=== PATIENT | female | born 1985 | race Caucasian/White ===

== ENCOUNTER 2025-04-16 09:34 | Emergency (ER) | payer BC, SELFPAY ==
--- NOTE | ~2025-04-16 | US_ITS ---
EXAMINATION: US pelvic complete INDICATION: Right lower quadrant pain for one week. Comparison:No prior studies for comparison. TECHNIQUE: Multiple transabdominal sonographic images of the pelvis performed. Patient refused transv aginal examination. FINDINGS: The uterus measures 9.5 x 4.1 x 6 cm. The endometrial complex measures 12 mm. The right ovary measures 2.4 x 2.7 x 2.2 cm and the left ovary measures 2.7 x 2.1 x 1.5 cm. There ar e small follicles in each ovary. Normal doppler signal in both ovaries. There is no free fluid in the pelvis. There are no abnormal masses seen on either side. IMPRESSION: 1. Mild endometrial thickening measuring 12 mm. Reviewed, dictated and finalized at location B.
--- NOTE | ~2025-04-16 | CT_ITS ---
EXAMINATION: CT abdomen pelvis w con DATE: 04/16/2025 10:19 INDICATION: Right lower quadrant pain TECHNIQUE: Computed tomography (CT) of the abdomen and pelvis was performed with 100 cc Omnipaque 350 intravenous contrast. The dose-length product was 561.68 mGy-cm. Automated exposure control and iter ative reconstruction technique were employed. COMPARISON: None. FINDINGS: There is dependent atelectasis. Heart size normal. No significant pleural or pericardial ef fusion. The liver, spleen, pancreas, adrenal glands and kidneys are unremarkable. Nonobstructive palak l gas pattern. Trace free fluid in the pelvis, physiologic. No hydronephrosis. Gallbladder is present . No free air. No significant vascular abnormality. No lymphadenopathy. No significant bone or joint abnormality. IMPRESSION: 1. No acute abdominal abnormality. Reviewed, dictated and finalized at location B.
[2025-04-16 09:37] VITALS: BP 159/94; PULSE 90; RESP 18; TEMP 36.6; O2SAT 100
[2025-04-16 09:39] VITALS: BP 159/94; PULSE 70; RESP 14; O2SAT 100
[2025-04-16 09:46] LABS: Basophils Percent Auto 0.6 % (0.2-1.2); Eosinophils Absolute Auto 0.2 K/mm3 (0-0.3); Eosinophils Percent Auto 2.4 % (0-4.4); Hematocrit 43.4 % (37.0-47.0); Hemoglobin 14.2 g/dL (12.0-15.0); Immature Granulocyte Absolute 0.03 K/mm3 (0.00-0.031); Immature Granulocyte Percent A 0.4 % (0-0.5); Lymphocytes Absolute Auto 2.21 K/mm3 (0.9-3.2); Lymphocytes Percent Auto 32.6 % (18.3-44.2); Mean Corpuscular HGB Conc 32.7 g/dl (32-36); Mean Corpuscular Hemoglobin 31.2 pg (26-34); Mean Corpuscular Volume 95.4 fl (80-100); Mean Platelet Volume 9.4 fl (7.4-10.4); Monocytes Absolute Auto 0.5 K/mm3 (0.1-0.6); Monocytes Percent Auto 6.6 % (2.6-8.5); Neutrophils Absolute Auto 3.9 K/mm3 (1.3-6.7); Neutrophils Percent Auto 57.4 % (45.5-73.1); Platelet Count Result 259 k/mm3 (150-375); Red Blood Count 4.55 M/mm3 (4.2-5.4); White Blood Count 6.8 K/mm3 (4.5-10.0)
[2025-04-16 09:51] LABS: BEDSIDEPREGUCG Negative (Negative)
--- NOTE | 2025-04-16 09:53 | ED_ITS ---
HPI - Abdominal Pain General Chief Complaint: Abdominal Pain Stated Complaint: abd pain Time Seen by Provider: 04/16/25 09:35 Source: patient Mode of arrival: ambulatory Limitations: no limitations History of Present Illness HPI narrative: Patient is a 39 y/o female who presents to the ED with c/o RLQ abd pain. Reports pain has been ongoing for the past 1 week. Worse with movement. She thought she may have strained a muscle. Denies alleviating factors. Has not tried anything for pain. States pain became worse and more sharp in nature today, which prompted her presentation. Denies history of similar pain. Does have history of ovarian cysts 10 years ago which she states was much more severe of pain. Denies N/V/D, fevers, urinary complaints, constipation. Related Data Allergies Allergy/AdvReac Type Severity Reaction Status Date / Time No Known Allergies Allergy Unknown Verified 04/16/25 09:39 Review of Systems 2 Review of Systems: All systems reviewed & are unremarkable except as noted in HPI. All systems reviewed & are unremarkable except as noted in HPI and below PMFSH Family History Family History Mother Asthma Family history of arthritis Family history of lung cancer Father Patient's father is in good health Sibling Patient's brother is Family history of allergic disorder Exam 2 Narrative: GENERAL: Well appearing, obese with BMI of 33.5, non-toxic, in no acute distress. HEAD: Normocephalic, atraumatic. RESPIRATORY: Airway patent, respirations nonlabored. Clear to auscultation bilaterally, no rales, rhonchi, wheezing. CARDIOVASCULAR: Regular rate and rhythm without murmurs, rubs, or gallops. ABDOMINAL: Soft, mild tenderness in right lower quadrant, right pelvic region, nondistended. Normoactive BS. MUSCULOSKELETAL: Moves all extremities. No gross deformities. SKIN: Warm, dry, normal color. NEURO: A&O X3. Speech clear. No ataxic movements. PSYCHIATRIC: Appropriate mood and affect. Normal interaction. Course Vital Signs Vital signs: Vital Signs Temperature 97.8 F 04/16/25 09:37 Pulse Rate 90 04/16/25 09:37 Respiratory Rate 18 04/16/25 09:37 Blood Pressure 159/94 H 04/16/25 09:37 Pulse Oximetry 100 04/16/25 09:37 Oxygen Delivery Room Air 04/16/25 09:37 Temperature 97.8 F 04/16/25 09:37 Pulse Rate 86 04/16/25 11:30 Respiratory Rate 16 04/16/25 11:30 Blood Pressure 118/80 04/16/25 11:30 Pulse Oximetry 98 04/16/25 11:30 Oxygen Delivery Room Air 04/16/25 09:37 MDM - Abdominal Pain MDM Narrative Medical decision making narrative: Patient presented to ED with 1 week history of right lower quadrant abdominal pain. No other associated symptoms. Vital signs are stable upon arrival. Patient is in no acute distress. Cbc without leukocytosis or anemia. CMP is unremarkable. UA with 6-10 WBC, but few squamous cells, no urine bacteria seen. Sent for culture. Patient denies any urinary complaints. Will defer to culture results. Urine is negative. CT scan of abdomen/pelvis was obtained and unremarkable. No evidence of appendicitis. Pelvic ultrasound was obtained and also without concerning findings. No evidence of ovarian cyst or torsion. Normal vascular blood flow to both ovaries. Does show mild endometrial thickening. Patient is due to start her menstrual cycle next week. Discussed lab and imaging findings, overall reassuring workup with patient. Feel she is safe for discharge home. Advised to utilize Tylenol/ibuprofen as needed for pain. Given return precautions. She is in agreement with plan. Discharged in stable condition. Medical Records Attestation: I reviewed the patient's medical records. Lab Data Attestation: I reviewed the patient's lab results. 04/16/25 09:40 04/16/25 09:40 Labs: Lab Results 04/16/25 04/16/25 04/16/25 Range/Units 09:40 09:49 09:50 WBC 6.8 (4.5-10.0) K/mm3 RBC 4.55 (4.2-5.4) M/mm3 Hgb 14.2 (12.0-15.0) g/dL Hct 43.4 (37.0-47.0) % MCV 95.4 (80-100) fl MCH 31.2 (26-34) pg MCHC 32.7 (32-36) g/dl RDW 12.0 (11.5-14.5) % Plt Count 259 (150-375) k/mm3 MPV 9.4 (7.4-10.4) fl Immature Gran % (Auto) 0.4 (0-0.5) % Neut % (Auto) 57.4 (45.5-73.1) % Lymph % (Auto) 32.6 (18.3-44.2) % Freestone % (Auto) 6.6 (2.6-8.5) % Eos % (Auto) 2.4 (0-4.4) % Baso % (Auto) 0.6 (0.2-1.2) % Lymph # (Auto) 2.21 (0.9-3.2) K/mm3 Freestone # (Auto) 0.5 (0.1-0.6) K/mm3 Eos # (Auto) 0.2 (0-0.3) K/mm3 Baso # (Auto) 0.0 (0.0-0.1) K/mm3 Abs Immat Gran (auto) 0.03 (0.00-0.031) K/mm3 Absolute Neuts (auto) 3.9 (1.3-6.7) K/mm3 Absolute Nucleated RBC 0.000 (0.0-0.012) K/mm3 Nucleated RBC % 0.0 (0.0-0.2) % Sodium 136 L (137-145) mmol/L Potassium 3.9 (3.4-5.0) mmol/L Chloride 102 (98-107) mmol/L Carbon Dioxide 24 (22-30) mmol/L Anion Gap 10 (4-12) mmol/L BUN 12 (7-17) mg/dL Creatinine 0.63 L (0.7-1.0) mg/dL Estim Creat Clear Calc 96 ml/min Estimated GFR > 60 (59 - ) Glucose 103 (65-110) mg/dL Calcium 9.9 (8.4-10.2) mg/dL Total Bilirubin 0.7 (0.2-1.3) mg/dL AST 28 (14-36) U/L ALT 22 (6-35) U/L Alkaline Phosphatase 56 (38-126) U/L Total Protein 8.4 H (6.3-8.2) g/dL Albumin 5.1 (3.5-5.1) g/dL Lipase 46 (23-300) U/L Urine Color Yellow (Yellow) Urine Appearance Clear (Clear) Urine pH 7.0 (5.0-9.0) Ur Specific Moyers 1.003 (1.001-1.035) Urine Protein Negative (Negative) mg/dL Urine Glucose (UA) Negative (Negative) mg/dL Urine Ketones Negative (Negative) mg/dL Ur Blood (Man) Negative (Negative) Urine Nitrate Negative (Negative) Urine Bilirubin Negative (Negative) Urine Urobilinogen 0.2 (<2.0) mg/dL Leukocyte Esterase Rfl 1+ H (Negative) DAXA/UL Urine RBC 0-2 (0-2) /hpf Urine WBC 6-10 H (0-3) /hpf Ur Squamous Epith Cells Few (Few) /hpf Urine Bacteria None seen /hpf Urine Casts 0-2 POC Urine HCG, Qual Negative (Negative) Imaging Data Attestation: I personally reviewed and interpreted this imaging study as follows: Radiologist's impression: ITS Impressions Pelvis Ultrasound 04/16/25 11:08 IMPRESSION: 1. Mild endometrial thickening measuring 12 mm. Abdomen/Pelvis CT 04/16/25 11:09 IMPRESSION: 1. No acute abdominal abnormality. Discharge Plan Discharge Clinical Impression: Right lower quadrant abdominal pain Patient Disposition: Home Condition: Stable Instructions: Antibiotic Form, Abdominal Pain (ED) Additional Instructions: Your workup here was reassuring. Recommend Tylenol and ibuprofen as needed for pain. Follow-up with your primary care doctor for further evaluation if needed. Return to the ED if you experience worsening or severe pain, unable to keep down food or drink, persistent fevers, or any other symptoms of concern. Patient Language: Grenadian Follow-up/Referrals: Lynne,DO Annmarie [Primary Care Provider] - Time of Disposition: 11:20
[2025-04-16 09:57] LABS: Alanine Aminotransferase 22 U/L (6-35); Albumin Level 5.1 g/dL (3.5-5.1); Alkaline Phosphatase 56 U/L (38-126); Anion Gap 10 mmol/L (4-12); Aspartate Amino Transferase 28 U/L (14-36); Bilirubin,Total 0.7 mg/dL (0.2-1.3); Blood Urea Nitrogen 12 mg/dL (7-17); Calcium 9.9 mg/dL (8.4-10.2); Carbon Dioxide 24 mmol/L (22-30); Chloride 102 mmol/L (98-107); Estimated CRCL calculation 96 ml/min; Estimated Glomerular Filt Rate > 60; Glucose 103 mg/dL (65-110); Lipase 46 U/L (23-300); Potassium 3.9 mmol/L (3.4-5.0); Sodium 136 mmol/L (137-145); Total Protein 8.4 g/dL (6.3-8.2)
[2025-04-16 09:59] LABS: Add Urine Microscopic? YES; Appearance Urine Clear (Clear); Bacteria Urine None Seen /hpf; Bilirubin Urine Negative (Negative); Blood Urine Negative (Negative); Color Urine Yellow (Yellow); Glucose Urine UA Negative (Negative); Ketones Urine Negative (Negative); Leukocyte Esterase Ur 1+ LEU/UL (Negative); Nitrate Urine Negative (Negative); Non Pathogenic Casts 0-2; Protein Urine Negative (Negative); RBC Urine 0-2 /hpf (0-2); Specific Grav Ur 1.003 (1.001-1.035); Squamous Epithelial Cell Urine Few /hpf (Few); Urobilinogen Urine 0.2 mg/dL (<2.0)
--- OUTSIDE RECORDS SUMMARY | 2025-04-16 10:13 | XMS_ITS | Data Portability ---
Author Organization [employer], [facility] Address [address] [place] [address] Assessment No assessment recorded. Plan of Treatment Reminders Order Date Submit Date Provider Last Modified By Organization Details Last Modified Time Details Appointments None record ed. Lab None record ed. Referral None record ed. Procedures None record ed. Surgeries None record ed. Imaging None record ed. Medication Orders None record ed. Patient TargetsNo targets recorded. Patient Instructions Encounter Date Encounter Id Patient Instructions Last Modified By Organization Details Last Modified Time 09/11/2022 [id number] Patient Health Questionnaire-9* [email or web address] Not available 10/06/2022 12:59:56 learning about dietary guidelines tcarrell Not available 09/11/2022 10:48:35 eating healthy foods: care instructions tcarrell Not available 09/11/2022 10:48:35 abuse/domestic violence education tcarrell Not available 09/11/2022 10:48:35 weight managemen t education tcarrell Not available 09/11/2022 10:48:35 learning about control tcarrell Not available 09/11/2022 10:48:35 Reason for Referral None Reported. Procedures Surgical History Date Name Laterality Status Provider Name and Address Organization Details Recorded Time Date of Last Pap Smear completed [facility] 09/11/2022 10:36:47 delivery completed [facility] [employer] 09/11/2022 10:38:43 Imaging Results None recorded. Procedure Notes None recorded. Medical Equipment None Reported. Allergies No known drug allergies Medications Name Sig Start Date Stop Date Status Note LastModified by Organization Details LastModified Time multivitamin active Not Available Not Available Not Available Vitals Date Recorded Body height Body mass index (BMI) Body weight Systolic blood pressure Diastolic blood pressure Provider Name and Address Organization Details Last Updated DateTime 09/11/2022 152.4 cm 31.2 kg/m2 98849.78 g 102 mm[Hg] 64 mm[Hg] Eunice Cristobal [facility] 10:34:36 Social History Question Answer Notes LastModified by [employer] Details LastModified Time Tobacco Smoking Status Current Some Day Smoker Eunice Cristobal null, [facility] 09/11/2022 10:11:37 What Type Of Diet Are You Following? REGULAR Information not available 09/11/2022 How Many Children Do You Have? 1 Information not available 09/11/2022 What Is Your Relationship Status? Single Information not available 09/11/2022 Are You Sexually Active? Yes Information not available 09/11/2022 How Much Tobacco Do You Smoke? 0.5 PPD Information not available 09/11/2022 Sex: Unknown Functional Status Question Answer Note LastModified by [employer] Details LastModified Time Do you use any illicit or recreational drugs? No Information not available 09/11/2022 What is your level of alcohol consumption? Moderate Information not available 09/11/2022 Do you or have you ever used e-cigarettes or vape? Never used electronic cigarettes Information not available 09/11/2022 What is your exercise level? Occasional Information not available 09/11/2022 Mental Status None recorded. Family History Relationship Description Onset Age of this Age Resolved Age Notes LastModified by Organization Details LastModified Time Paternal Grandfather Heart disease ricenogle Not available 2021 10:11:37 Maternal Grandmother Malignant tumor of cervix ricenogle Not available 2021 10:11:37 Mother Malignant neoplasm of lung ricenogle Not available 2021 10:11:37 Father Heart disease ricenogle Not available 2021 10:11:37 Father Hypertensive disorder ricenogle Not available 2021 10:11:37 Medical History Condition Response Other Cancer N High Blood Pressure N Colon Cancer N Cytomegalovirus N Hyperthyroidism N MRSA N Blood Transfusion N Herpes (HSV) N Breast Cancer N Lung Cancer N Depression N Hypothyroidism N Incontinence N Panic Attacks N Neurological Disorder N Deep Vein Thrombosis N Anxiety Disorder N Autoimmune disease N Arthritis N Shingles N Tuberculosis/Positive PPD N Polycystic Ovarian Syndrome N Cervical Cancer N Chlamydia N Hematuria N Stroke N Varicosities N Seasonal allergies N Crohn's Disease N Alzheimer's/Dementia N COPD/Emphysema N Endometriosis N HPV/Genital Warts N IBS (Irritable Bowel Syndrome) N History of Abnormal Pap N High Cholesterol N Liver Disease N Fibromyalgia N Kidney Infection N Ulcer N Kidney Disease N HIV N Gallbladder disease N Sickle Cell Disease/Trait N Von Willebrand disease N ADD/ADHD N Eating Disorder N Diabetes Mellitus (non-insulin dependent ) N Anemia N Ovarian Problems N Multiple Sclerosis N Gonorrhea N Frequent Urinary Tract infections N Osteopenia N Headaches/migraines N GERD (reflux) N Ovarian Cancer N Diabetes (insulin dependent) N Seizures/Epilepsy N Fibroids N Asthma Y Heart Attack N Lupus N Endometrial Cancer N Rubella N Blood Clotting Disorder N Bipolar Disorder N Diabetes Mellitus (during ) N Ulcerative Colitis N Hepatitis N Heart Disease N Pulmonary Embolism N RPR N Chicken Pox N Osteoporosis N Gynecological History Statement/Question Response Flow Moderate Date of LMP 08/18/2022 Frequency of Cycle (Q days) 28 Date of Last Pap Smear 05/18/2020 Duration of Flow (days) 7 Current Control Method Condoms Age at Menarche 13 Obstetrics History GPAL:G 2 P 1 0 1 1 Type Value Full Term 1 Induced 1 Living 1 Total 2 Past Encounters Encounter ID Performer Location Encounter Start Date Encounter Closed Date Diagnosis/Indication Diagnosis SNOMED-CT Code Diagnosis ICD10 Code Diagnosis Note [id number] GREG VELIZ ZULEMA DUNN [facility] [address] [place] [address] 09/11/2022 09:44:14 09/11/2022 11:28:41 Gynecologic examination 78283767 Z01.419 37 y.o. here for annual exam.- Pap / HPV cotesting // up to date from 2019, discussed natural course of HPV infection, ASCCP guidelines . Plan to repeat cotesting in 1 year- Contracept antwan counseling : Wishes to continue condom use- Routine labs done with PCP- Mammo at age 40, no increased risk- Depression screen NEG- BMI counseling , diet and exercise reviewed- RTO for annual or PRN Contracept ion care education 275755885 Z30.09 Depression screening 171 822700 Z13.31 Health Concerns Section Related Observation LastModified by Organization Detai ls LastModified Time None Recorded Concern Status LastModified by Organization Details LastModified Time None Recorded Advance Directives Directive None Recorded Payers Insurance Date Sequence Insurance Name Policy Number Policy Bowie Covered Member ID Bowie Member ID Guarantor Name 03/29/2022 1 [employer] - LIVE 360 (EPO) [id number] Payton Jean Baptiste [id number] Payton Jean Baptiste Notes Date Note Type Note Provider Name and Address Organization Details Recorded Time 09/11/2022 text/html Annual GYNReport ed bypatient.Menstrua l cycle:Normal menses Urinary symptoms:No hematuria; No incontinence Vulva:No genital lesion Vagina:Normal vaginal discharge Breast:No breast pain; No breast lump; No nipple discharge Sexual complaints:No sexual complaints; No pain during intercourse; Normal libido Menopausal Symptoms:No menopausal symptoms; Normal vaginal lubrication Psychological symptoms:No depression; No anxiety; No PMDD Preventive measures:Encourage self breast examination; Encourage regular exercise; Encourage no tobacco use; Encourage regular mammograms starting age 40; Followed with Q3 year pap smear and high risk HPV typing GREG DUNN CNM [address] [place], [address], [facility] 09/11/2022 11:00:23 OBGyn Episode Ob Episode Information Episode Created Date Number of Fetuses Patient Bloodtype Patient rh Status Prepregnancy Weight lbs Domestic Partner Domestic Partner Phone Father Name Range Technician Status 09/11/20 22 1 CLOSED Fetus Data First Name Last Name Admitted to NICU Weight (g) Sex Living Outcome Pediatric Complications Fetus ID Race Codes Race Delivery Type 3401.94 M Full Term [id number] Primary Scott Calculation Initial Scott Date Initial Exam Date Initial Exam Provider Initial Ultrasound Date Last Menstrual Period Date Ultra Sound Weeks Gestation 0 Eighteen To Twenty Week Scott Update Ultra Sound Date Fundal Height At Umbil Quickening Date Ultra Sound Latest Weeks Gestation Final Scott Confirmed By Final Scott Confirmed Date Final Scott Date Ultra Sound Latest Days Gestation 0 0 Menstrual History Last Menstrual Date Menses Monthly On Bcp Conception Prior Menses Frequency Hcg Plus Date Menarche Onset Age Delivery Information Delivery Date Delivery Type Labor Anesthesia Weeks Gestation Incision Type Labor Labor Length Hrs Delivered By Post Complications Tubal Sterilization Discharge Date Comments 9 Discharge Information Feeding Method Contraceptive Method Maternal HG B and HCT Levels
--- OUTSIDE RECORDS SUMMARY | 2025-04-16 10:14 | XMS_ITS | Data Portability ---
Author Organization [facility] Address [address] [place] [address] Assessment Encounter Date Assessment Date Assessment LastModified by Organization Details LastModified Time 08/06/2019 08/06/2019 Pt presents with acute complaints r/t soreness of throat: tmond Not available 08/07/2019 12:08:42 Plan of Treatment Reminders Order Date Submit Date Provider Last Modified By Organization Details Last Modified Time Details Appointments None recorded. Lab rapid strep group A, throat 2018 tmond In-Office Order, Internal Use Only DO Not Attach Compendium DO Not Attach Compendium, Do Not Delete/merge, [id number] 12:43:00 Referral None recorded. Procedures None recorded. Surgeries None recorded. Imaging None recorded. Medication Orders amoxicilli n 500 mg capsule 2018 [facility] [id number] [facility], [facility] [address] [place], [address], 9 15:13:41 Patient TargetsNo targets recorded. Patient Instructions Encounter Date Encounter Id Patient Instructions Last Modified By Organization Details Last Modified Time 08/06/2019 [id number] -Pt advised to drink plenty of fluids, get plenty of rest, discard toothbrush after treatment may use salt water gargles and to complete antibiotic regimen. -Instructed to call office if symptoms are unchanged or worsen in the next few days. -Instructed to present to the ED or urgent care with urgent concerns or urgent changes in condition. tmond Not available 08/07/2019 12:12:01 -Discussed POC -Pt to follow up with routine f/u visit as discussed tmond Not available 08/07/2019 12:12:07 Reason for Referral None Reported. Results Created Date Observation Date Name Description Value Unit Range Abnormal Flag Note LastModifiedBy Organization Detail LastModifiedTime 08/06/20 19 08/06/2019 rapid strep group A, throa t Strep negati ve Not Available In-Office Order Internal Use Only DO Not Attach Compendium DO Not Attach Compendium, Do Not Delete/merge, [id number] 08/06/2019 15:01:42 Result Notes None recorded. Medical Equipment None Reported. Allergies No known drug allergies Medications Name Sig Start Date Stop Date Status Note LastModified by Organization Details LastModified Time amoxicillin 500 mg capsule Take 1 capsule every 12 hours by oral route for 10 days. active Not Available Not Available No t Available hydrocodone 5 mg-acetaminop hen 325 mg tablet active Not Available Not Available Not Available ibuprofen 600 mg tablet active Not Available Not Available No t Available cefdinir 300 mg capsule active Not Available Not Available N ot Available Vitals Date Recorded Body height Body mass index (BMI) Body weight Body temperature Oxygen saturation Oxygen saturation in Arterial blood by Pulse oximetry Heart rate Systolic blood pressure Diastolic blood pressure Provider Name and Address Organization Details Last Updated DateTime 9 165.1 cm 28.3 kg/m2 37130.7 g 98.9 [degF] 99 % 99 % 76 /min 112 mm[Hg] 72 mm[Hg] Heather Dennis MA [place] [facility] 9 14:54:36 Social History Question Answer Notes LastModified by [employer] Details LastModified Time Tobacco Smoking Status Current Every Day Smoker Heather Dennis MA [facility], [facility] 08/06/2019 14:52:13 What Was The Date Of Your Most Recent Tobacco Screening? 08/06/2019 Information n ot available 08/07/2019 How Much Tobacco Do You Smoke? 0.5 PPD Information not available 08/06/2019 Sex: Unknown Functional Status Question Answer Note LastModified by [employer] Details LastModified Time Do you or have you ever used smokeless tobacco? Never used smokeless tobacco Information not available 08/06/2019 Do you or have you ever used e-cigarettes or vape? Never used electronic cigarettes Information not available 08/06/2019 Mental Status None recorded. Family History Nothing Reported. Medical History No medical history recorded. Gynecological HistoryNo gynecological history recorded. Obstetrics History GPAL:G 0 P 0 0 0 0 Past Encounters Encounter ID Performer Location Encounter Start Date Encounter Closed Date Diagnosis/Indication Diagnosis SNOMED-CT Code Diagnosis ICD10 Code Diagnosis Note [id number] HUI MENDOZA [facility] [address] [place] [address] 08/06/2019 14:28:16 08/07/2019 13:37:45 Pain in throat 638644225 R07.0 -Pt reports sore throat for approx 24 hrs-PE yields mild exudate on right tonsil. erythema Exposure t o streptococcal pharyngitis 5751985594 105 Z20.818 -Pt with recent exposure to Strept throat-Man agement as outlined Health Concerns Section Related Observation LastModified by Organization Detai ls LastModified Time None Recorded Concern Status LastModified by Organization Details LastModified Time None Recorded Advance Directives Directive None Recorded Payers Insurance Date Sequence Insurance Name Policy Number Policy Bowie Covered Member ID Bowie Member ID Guarantor Name 08/06/2019 1 [employer] (POS) [id number] Payton Jean Baptiste [id number] Payton Jean Baptiste Notes Date Note Type Note Provider Name and Address Organization Details Recorded Time 08/06/2019 text/html Throat PainReported bypatient.Location :level of pain ; bilateral Severity:mild; pain level 3/10 Onset/Timing:gradu al; stable Associated Symptoms:no stress; no coughing with sputum; no choking; no throat tickle/itch; no globus sensation; no odynophagia; no dysphagia; no burping; no hoarseness; no neck/shoulder muscle tension; no weight loss; no loss of appetite; no fever; no lump in neck; no dyspnea; no daytime somnolence; no ear pain; no ear infection; no nasal congestion; no postnasal drip; no oral mucosal lesion; no hemoptysis HUI MENDOZA Attn: [address]ing[address] [place], [address], [place] - [facility] 08/07/2019 12:12:51 OBGyn Episode No OBEpisode recorded.
--- OUTSIDE RECORDS SUMMARY | 2025-04-16 10:14 | XMS_ITS | Clinical Summary ---
Author Organization Davey Pao [facility] Address [address] [place] [address] Phone Care Team Providers Care Cook Manager Name Role Phone Unavailable Primary Care Provider Unavailabl e Allergies Active Allergy Reactions Criticality Noted Date Comments Adhesive Tape-Silicones Unknown 05/06/2021 Cyclobenzaprine Unknown 05/06/2021 Medications No known medications Active Problems Problem Noted Date Diagnosed Date Family history of lung cancer 05/16/2021 Family history of uterine cancer 05/16/2021 Family history of ovarian cancer 05/16/2021 Family history of cervical cancer 05/16/2021 Family history of esophageal cancer 05/16/2021 Genetic testing 05/16/2021 Family History Medical History Relation Name Comments Other Father Suicide Cancer Maternal Aunt 1 Cervical can cer Cancer Maternal Cousin 1 Ovarian Cancer Maternal Cousin 1 Cervical cancer Cancer Maternal Cousin 2 Thyroid ca ncer Cancer Maternal Grandmother Uterine cancer Ovarian Cancer Maternal Grandmother Cancer Maternal Uncle Esophageal ca ncer Lung Cancer Mother Smoker Cancer Paternal Cousin Childhood ca ncer Relation Name Status Comments Brother 1 Alive Brother 2 Father Maternal Aunt 1 Alive Maternal Aunt 2 Alive Maternal Cousin 1 Alive Maternal Cousin 2 Alive Maternal Grandfather Maternal Grandmother endomet rial Maternal Uncle Mother cervical and th yroid/lung Paternal Aunt 1 Alive Paternal Aunt 2 Alive Paternal Aunt 3 Alive Paternal Aunt 4 Alive Paternal Cousin Alive Paternal Grandfather Paternal Grandmother Paternal Uncle 1 Alive Paternal Uncle 2 Alive Paternal Uncle 3 Alive Paternal Uncle 4 Alive Sister Alive Son Alive Social History Tobacco Use Types Packs/Day Years Used Date Smoking Tobacco: Never Assessed Comments Unknown Sex and Gender Information Value Date Recorded Sex Assigned at Not on file 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
--- OUTSIDE RECORDS SUMMARY | 2025-04-16 10:14 | XMS_ITS | Clinical Summary ---
Author Organization [facility] Address [address] [place] [address] Care Team Providers Care Screen Cleaner Name Role Phone María Deleon MD Primary Care Provider Maxine vailable Source Comments [facility],non-owned Affiliates and Associated Physician Practices is amultiple site organization consisting of ambulatory clinics and hospital sitesin [place], [place], [place] and [place]. This disclosure is being madepursuant to the Care Everywhere program and may not contain all information available regarding this patient. Last updated 18.[facility] Allergies No known active allergies Medications * Be aware that medications may not be up to date on this document. Alwaysverify current medications with the patient. albuterol HFA (VENTOLIN HFA) 108 (90 BASE) MCG/ACT inhaler Inhale 2 puffs by mouth every 6 hours as needed for Wheezing 1 Inhaler 1 12/26/2017 Active Active Problems No known active problems Immunizations Immunization Administration Dates Next Due TDAP (7yrs+) 10/23/2018 Family History Medical History Relation Name Comments Other - Cardiac Father Cancer - Other Mother Asthma Neg Hx Autoimmune Disease Neg Hx Bipolar Disorder Neg Hx Cancer - Breast Neg Hx Cancer - Colon Neg Hx Cancer - Ovarian Neg Hx Cancer - Pancreatic Neg Hx Cancer - Prostate Neg Hx Depression Neg Hx Eczema Neg Hx Hypertension Neg Hx Migraine Neg Hx Osteoporosis Neg Hx Seizures Neg Hx Sudd. <30 Neg Hx Thyroid Disease Neg Hx Ulcerative Colitis Neg Hx Relation Name Status Comments Father Alive Mother Social History Tobacco Use Types Packs/Day Years Used Date Smoking Tobacco: Every Day Smokeless Tobacco: Never Tobacco Cessation:Ready to Q uit: No; Counseling Given: No Alcohol Use Standard Drinks/Week Comments No 0 (1 standard drink = 0.6 oz pur e alcohol) Comments No Sex and Gender Information Value Date Recorded Sex Assigned at Female 11/11/2024 12:40 PM DIRECTOR MUSIC Legal Sex Female 9:07 AM DIRECTOR MUSIC Gender Identity Female 11/11/2024 12:40 PM DIRECTOR MUSIC Sexual Orientation Straight 11/11/2024 12 :40 PM DIRECTOR MUSIC Last Filed Vital Signs Vital Sign Reading Time Taken Comments Blood Pressure 120/77 12/26/2017 12:14 PM DIRECTOR MUSIC Pulse 98 12/26/2017 12:14 PM DIRECTOR MUSIC Temperature 36.7 C (98.1 F) 12/26/2017 12:14 PM DIRECTOR MUSIC Respiratory Rate 20 12/26/2017 12:14 PM DIRECTOR MUSIC Oxygen Saturation 98% 12/26/2017 12:14 PM DIRECTOR MUSIC Inhaled Oxygen Concentration - - Weight 74.8 kg (165 lb) 12/26/2017 12:14 PM DIRECTOR MUSIC Height 152.4 cm (5') 12/26/2017 12:14 PM DIRECTOR MUSIC Body Mass Index 32.22 12/26/2017 12:14 PM DIRECTOR MUSIC Plan of Treatment Health Maintenance Due Date Last Done Comments HIV SCREENING 2002 HEPATITIS C SCREENING 04/30/2005 HEPATITIS B VACCINE (1 of 3 - 19+ 3-dose series) 2006 COVID-19 VACCINE (2023-2 5 season) 2024 DEPRESSION SCREENING 11/05/2024 INFLUENZA VACCINE (Season Ended) 2025 DTAP/TDAP/TD VACCINES (2 - T d or Tdap) 10/23/2028 10/23/2018 ZOSTER VACCINE (1 of 2) 2037 HIB VACCINE Aged Out No longer eligi ble based on patient's age to complete this topic HPV VACCINE Aged Out No longer eligi ble based on patient's age to complete this topic MENINGOCOCCAL (Group B) VACC INE SHARED DECISION-MAKING Aged Out No longer eligibl e based on patient's age to complete this topic MENINGOCOCCAL GROUPS A/C/Y/W VACCINE Aged Out No longer eligible b ased on patient's age to complete this topic PNEUMOCOCCAL VACCINE Aged Out No long er eligible based on patient's age to complete this topic Insurance [employer] Care Teams Screen Cleaner Relationship Specialty Start Date End Date María Deleon MD PCP - General Pediatrics 12/26/17
[2025-04-16 11:30] VITALS: BP 118/80; PULSE 86; RESP 16; O2SAT 98
--- OUTSIDE RECORDS SUMMARY | 2025-04-16 11:43 | XMS_ITS | Clinical Summary ---
Author Organization [facility] Address [address] [place] [address] Care Team Providers Care Frame Operator Name Role Phone María Deleon MD Primary Care Provider Maxine vailable Source Comments [facility],non-owned Affiliates and Associated Physician Practices is amultiple site organization consisting of ambulatory clinics and hospital sitesin [place], [place], [place] and [place]. This disclosure is being madepursuant to the Care Everywhere program and may not contain all information available regarding this patient. Last updated 18.[employer] [facility] Allergies No known active allergies Medications * [...] Sex Assigned at Female 11/11/2024 12:40 PM FRUIT HARVEST WORKER Legal Sex Female 9:07 AM FRUIT HARVEST WORKER Gender Identity Female 11/11/2024 12:40 PM FRUIT HARVEST WORKER Sexual Orientation Straight 11/11/2024 12 :40 PM FRUIT HARVEST WORKER Last Filed Vital Signs Vital Sign Reading Time Taken Comments Blood Pressure 120/77 12/26/2017 12:14 PM FRUIT HARVEST WORKER Pulse 98 12/26/2017 12:14 PM FRUIT HARVEST WORKER Temperature 36.7 C (98.1 F) 12/26/2017 12:14 PM FRUIT HARVEST WORKER Respiratory Rate 20 12/26/2017 12:14 PM FRUIT HARVEST WORKER Oxygen Saturation 98% 12/26/2017 12:14 PM FRUIT HARVEST WORKER Inhaled Oxygen Concentration - - Weight 74.8 kg (165 lb) 12/26/2017 12:14 PM FRUIT HARVEST WORKER Height 152.4 cm (5') 12/26/2017 12:14 PM FRUIT HARVEST WORKER Body Mass Index 32.22 12/26/2017 12:14 PM FRUIT HARVEST WORKER Plan of Treatment Health Maintenance Due Date [...] age to complete this topic Insurance AETNA [facility] Address: [facility] [id number] [place] [phone] Care Teams Frame Operator Relationship Specialty Start Date End Date María Deleon MD PCP - General Pediatrics 12/26/17
--- OUTSIDE RECORDS SUMMARY | 2025-04-16 11:43 | XMS_ITS | Clinical Summary ---
Author Organization [facility] Address [address] [facility] 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
== END 2025-04-16 11:30 | disposition home or self-care (01) ==
PROVIDERS: Preventive Medicine Aerospace Medicine; Emergency Provider Physician Assistant; PCP Family Medicine
DX: R10.31 Right lower quadrant pain (principal); R93.89 Abnormal findings on diagnostic imaging of other specified body structures
CPT/HCPCS: 36415; 74177; 76856; 80053; 81001; 81025; 83690; 85025; 87086; 99284; Q9967